=== PATIENT | female | born 1985 ===

== ENCOUNTER 2021-08-21 08:19 | Day surgery (SDC) | payer OTHER ==
[~2021-08-21 08:19] MED LIST: AMOCLA875 PO; IBUP800 PO; LAMO100 PO; NAPR550 PO; OXYACE5T PO
== END 2021-08-21 23:27 | disposition home or self-care (01) ==
LOC: MOI US 08:19 → EDSTATUS 08:45 → MOI US 23:27 → MOI MAM 09-01 08:00 → MOI US 09-08 13:45
DX: D24.1 Benign neoplasm of right breast (principal)
CPT/HCPCS: 19083; 19084; 77065; A4648; G0279

== ENCOUNTER → 2024-09-15 | Outpatient (CLI) | payer OTHER ==
[2024-09-16 13:00] LABS: Bacterial Vaginosis PCR Negative (NEGATIVE); Candida glabrata-krusei, PCR NOT DETECTED (NOT DETECT)
[2024-09-16 14:32] LABS: Candida Group, PCR DETECTED (NOT DETECT)
== END ==
LOC: LAB SHORT 17:17 → LAB 17:17
PROVIDERS: Physician Assistant
DX: N89.8 Other specified noninflammatory disorders of vagina (principal)
CPT/HCPCS: 81515

== ENCOUNTER → 2024-12-11 | Outpatient (CLI) | payer OTHER ==
[2024-12-11 15:50] LABS: Bacterial Vaginosis PCR Negative (NEGATIVE); Candida glabrata-krusei, PCR NOT DETECTED (NOT DETECT)
[2024-12-11 16:30] LABS: Candida Group, PCR DETECTED (NOT DETECT)
== END ==
LOC: LAB 11:22 → LAB SHORT 11:22
PROVIDERS: Family Medicine
DX: N76.0 Acute vaginitis (principal)
CPT/HCPCS: 81515